=== PATIENT | male | born 1990 ===

== ENCOUNTER 2021-12-22 21:57 | Emergency (ER) | payer OTHER ==
[2021-12-22 22:21] VITALS: BP 124/81
--- NOTE | 2021-12-22 23:02 | XRay Report ---
Right wrist 4 views INDICATION: Injury FINDINGS: Carpal bone alignment appears normal. No acute fractures seen. No focal soft tissue swellin g is identified. Distal radius and ulna appear normal Signer Name: Jens Ferrer MD Signed: 12/22/2021 10:58 PM Workstation Name: [id number]
--- NOTE | 2021-12-23 06:18 | Emergency Department Report ---
Upper Extremity - HPI Chief Complaint: Extremity Injury, Upper Stated Complaint: RT HAND INJURY/WORKMAN'S COMP Time Seen by Provider: 12/23/21 05:16 Upper Extremity: Right Wrist Occurred When: 2 Days Mechanism: Other Severity: moderate Symptoms: Yes Pain with Movement, Yes Bruising/Ecchymosis, No Deformity, No Limited Range of Movement, No Numbness, No Weakness, No Swelling, No Laceration or Abrasion Other History: injured wrist while trying to pull a pallet ED Review of Systems ROS: Stated complaint: RT HAND INJURY/WORKMAN'S COMP Other details as noted in HPI Comment: All other systems reviewed and negative Upper Extremity Exam - Exam General: Vital signs noted. No distress. Alert and acting appropriately. ED Course Vital Signs 12/22/21 22:20 Temperature 97.9 F Pulse Rate 69 Respiratory 18 Rate Blood Pressure 124/81 O2 Sat by Pulse 100 Oximetry Critical care attestation.: If time is entered above; I have spent that time in minutes in the direct care of this critically ill patient, excluding procedure time. ED Disposition Disposition: 01 HOME / SELF CARE / HOMELESS Condition: Stable Instructions: How to Use Cold Therapy, [id number], Muscle Strain, [id number], Elastic Bandage and RICE Therapy, How to Use Cold Therapy, Wrist Splint, Adult Referrals: [facility] [Provider Group] - 3-5 Days
== END 2021-12-23 06:30 | disposition home or self-care (01) ==
LOC: ED 21:57
DX: S69.91XA Unspecified injury of right wrist, hand and finger(s), initial encounter (principal); Z53.21 Procedure and treatment not carried out due to patient leaving prior to being seen by health care provider; X58.XXXA Exposure to other specified factors, initial encounter; Y93.89 Activity, other specified; Y92.89 Other specified places as the place of occurrence of the external cause; Y99.8 Other external cause status
CPT/HCPCS: 99283